=== PATIENT | male | born 1970 | race Caucasian/White ===

== ENCOUNTER 2021-10-03 12:28 | Day surgery (SDC) | payer OTHER, SELFPAY ==
[2021-10-03 12:58] VITALS: BP 135/82; PULSE 51; RESP 18; TEMP 36.9; O2SAT 100
--- NOTE | 2021-10-03 13:02 | P.PNAN_ITS ---
Anes - Initial Pre Proc Eval Procedure: Operation Date: 10/03/21 14:00 Proposed Procedures p Screening Colonoscopy - Ryley Longoria MD Date/Time: 10/03/21 13:02 Surgeon: Ryley Longoria MD Pre Op Diagnosis: neoplasm screening Patient Data Age: 51 Gender: M Height: 1.65 m Weight: 82 kg Allergies Allergy/AdvReac Type Severity Reaction Status Date / Time No Known Allergies Allergy Unknown Verified 10/03/21 12:55 Home Medications Medication Instructions Recorded Confirmed Type amlodipine 10 mg tablet 10 mg PO DAILY #90 tabs 08/23/21 10/03/21 Rx sodium sul 1.479 gram-potas ch See Rx Instructions PO PER PKG DIR 09/15/21 10/03/21 Rx 0.188 gram-magnes sul 0.225 gram #24 tabs tablet (Sutab) Patient hx anesthesia problems: none Family hx anesthesia problems: hx of malignant hyperthermia (cousin) Results Review: All pre-operative results and documents have been reviewed as part of the pre- operative evaluation. [facility] Past Medical History Medical History Degenerative joint disease of knee Effusion of bursa of left knee Essential (primary) hypertension History of COVID-19 12/2020 Left knee pain Prepatellar bursitis Right knee pain Tendinopathy of left shoulder Surgical History Surgical History History of removal of cyst 1989 - below chin History of repair of anterior cruciate ligament of right knee 2000 History of umbilical hernia repair 2015 Family History Family History Mother Family history of malignant neoplasm of brain Sibling Family history of Hodgkin's lymphoma Father Diabetes mellitus Other Hypertension Social History Social History Smoking status: Never smoker Second hand tobacco smoke exposure: No Alcohol intake: unknown Substance use: never Substance use type: does not use Living arrangements: with family Gender identity (if verbalized by the patient): Male Spiritual care concerns: No Anes - Eval Final PreProcedure Day of Procedure 10/03/21 13:02 Patient weight: overweight Heart: regular rate and rhythm Lungs: clear to auscultation Airway: Mallampati scale class II Neurological: alert and oriented Last oral intake: >/= 8 hours ASA classification: II Emergent: no Anesthetic plan: proceed Anesthesia type and monitoring: general GIVS and standard monitoring Results Review: All pre-operative results and documents have been reviewed as part of the pre- operative evaluation. Informed Consent: The patient's anesthetic plan and its attendant risks and benefits were discussed with the patient/family/POA. Questions were solicited and answers provided to the satisfaction of the patient/family/POA.
[2021-10-03] MEDS: LACTATED RINGERS 1,000 ML 150 ML IV CONT (13:06)
--- NOTE | 2021-10-03 13:35 | PM.HPGS ---
History of Present Illness History of Present Illness Consent: Risks, benefits, and alternatives have been discussed and questions answered. Patient agrees to proceed with procedure. Chief complaint: neoplasm screening Narrative: Mike Vallecillo is a 51 year old male here for screening colonoscopy, had one 8 years ago Review of Systems Constitutional: Constitutional: Denies headache(s) and Denies weakness Eyes: Eyes: Denies blurry vision ENT: Reports Normal hearing present, Denies headache(s) and Denies neck pain Cardiovascular: Cardiovascular: Denies chest pain and Denies dyspnea Respiratory: Respiratory: Denies dyspnea Gastrointestinal: Gastrointestinal: Reports no additional gastrointestinal complaints Genitourinary: Genitourinary: Denies dysuria Musculoskeletal: Musculoskeletal: Denies neck pain Integumentary/Breasts: Skin/Breast: Denies dry skin Neurologic: Reports Normal hearing present, Denies headache(s) and Denies weakness Psychiatric: Psychiatric: Denies anxiety Endocrine: Endocrine: Denies change in body appearance Hematologic/Lymphatic: Hematologic/Lymphatic: Denies easy bleeding Allergic/Immunologic: Allergic/Immunologic: Denies urticaria PMFSH Past Medical History Medical History (Updated 10/03/21 @ 13:36 by Ryley Longoria MD) Colon cancer screening Degenerative joint disease of knee Effusion of bursa of left knee Essential (primary) hypertension History of COVID-19 12/2020 Left knee pain Prepatellar bursitis Right knee pain Tendinopathy of left shoulder Surgical History Surgical History History of removal of cyst 1989 - below chin History of repair of anterior cruciate ligament of right knee 2000 History of umbilical hernia repair 2016 Family History Family History Mother Family history of malignant neoplasm of brain Sibling Family history of Hodgkin's lymphoma Father Diabetes mellitus Other Hypertension Social History Social History Smoking status: Never smoker Second hand tobacco smoke exposure: No Alcohol intake: unknown Substance use: never Substance use type: does not use Living arrangements: with family Gender identity (if verbalized by the patient): Male Spiritual care concerns: No Meds Home Medications and Allergies Home Medications Medication Instructions Recorded Confirmed Type amlodipine 10 mg tablet 10 mg PO DAILY #90 tabs 08/23/21 10/03/21 Rx sodium sul 1.479 gram-potas ch See Rx Instructions PO PER PKG DIR 09/15/21 10/03/21 Rx 0.188 gram-magnes sul 0.225 gram #24 tabs tablet (Sutab) Allergies Allergy/AdvReac Type Severity Reaction Status Date / Time No Known Allergies Allergy Unknown Verified 10/03/21 12:55 Vital Signs Vital Signs - 24 hr 10/03/21 12:58 Temperature 98.4 F Pulse Rate 51 L Respiratory Rate 18 Blood Pressure 135/82 Pulse Oximetry 100 Oxygen Delivery Room Air Exam Const: General: comfortable and no acute distress HENMT: General nose exam: Normal nares present Eyes: General: appearance normal, both eyes and all related structures Neck: Neck: no JVD Resp: Auscultation: clear to auscultation bilaterally Cardio: Rate: regular rate Rhythm: regular rhythm GI: Inspection: non-distended GI Palp: Yes Soft to palpation Skin: General skin exam: normal color Neuro: General: gait normal Speech: normal speech Extrem: General: normal to inspection Psych: Mental Status: mental status grossly normal Assessment and Plan Assessment and plan (1) Colon cancer screening: Code(s): Z12.11 - Encounter for screening for malignant neoplasm of colon Status: Acute Assessment and Plan: colonoscopy
[2021-10-03 13:53] VITALS: BP 138/96; PULSE 67; RESP 18; TEMP 36.3; O2SAT 97
[2021-10-03 14:03] VITALS: BP 137/84; PULSE 63; RESP 18; O2SAT 98
[2021-10-03 14:13] VITALS: BP 135/80; PULSE 66; RESP 20; O2SAT 99
--- NOTE | 2021-10-03 14:42 | WPDANESPN ---
Anes - Prog Note Post-Op Date/Time: 10/03/21 14:42 Cardiovascular status: normal Respiratory status: normal Airway patency: baseline Mental status: baseline Post-Op hydration status: normal Vital Signs: Last Vital Signs Temp 36.3 C L 10/03/21 13:53 Pulse 66 10/03/21 14:13 Resp 20 10/03/21 14:13 BP 135/80 10/03/21 14:13 Pulse Ox 99 10/03/21 14:13 O2 Del Method Room Air 10/03/21 14:13 Pain Score (VAS): 0 I/O: Intake & Output 10/02/21 10/03/21 10/03/21 23:59 07:59 15:59 Intake Total 600 Balance 600 Patient Feedback: Patient satisfied with anesthetic care.
== END 2021-10-03 14:25 | disposition home or self-care (01) ==
PROVIDERS: PCP Family Medicine; Visit Provider Internal Medicine Gastroenterology
PROC: 0DJD8ZZ Inspection of Lower Intestinal Tract, Via Natural or Artificial Opening Endoscopic (ICD-10-PCS; CPT 45378; principal; 2021-10-03 14:00)
DX: K57.30 Diverticulosis of large intestine without perforation or abscess without bleeding (principal); Z12.11 Encounter for screening for malignant neoplasm of colon; K64.8 Other hemorrhoids
CPT/HCPCS: 45378

== ENCOUNTER 2024-09-21 14:30 | Outpatient (RCR) | payer OTHER, SELFPAY ==
--- NOTE | 2024-09-08 11:17 | OTOPEVAL1 ---
Assessment and note entered by Gary Ashford, JULIEN/Henrietta, CHT OT Evaluation Information Assessment Status Evaluation Diagnosis M79.631 Pain in right forearm Subjective Information Patient started noticing bilateral forearm pain for a few years. He noticed it during COVID when he and his started doing a lot more yard work than usual. He reports pain is located on the dorsal proximal forearm. Exacerbated by golf, bowling, bracing himself if he falls when playing soccer, and riding a bike for a prolonged period. He reports night time numbness, waking up in the middle of the night with numbness in the thumb, index, and middle fingers. Numbness in the thumb with bike riding. All numbness is located on the palm side of the hand, none on the dorsal side of the hand. 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 Reported Pain Level Pain Score 2/10 Assessment OT Clinical Summary Patient referred to OT with forearm pain. He presents with bilateral proximal forearm pain consistent with radial tunnel syndrome. He has tenderness with palpation to the radial nerve as well as a positive radial nerve tension test bilaterally. He also describes symptoms of carpal tunnel syndrome with intermittent paresthesia in the median nerve distribution of bilateral hands, particularly nocturnal symptoms. Educated on use of wrist cock up splints to wear at night time as well as nerve glide and tendon glide HEP. Continued follow up indicated for use of modalities, manual therapy, therapeutic exercise, and HEP progression to facilitate reduced bilateral UE pain and improved functional strength and use for ADLs. Plan of Care Interventions Therapeutic Exercise,Manual Therapy,Therapeutic Activities,Hot Pack/Cold Pack,Check Out for Orthotic/Prosthetic,Ultrasound,Paraffin OT Services Indicated Yes Treatment Frequency and 1x/week for 5 visits Duration These treatments will address the objective and functional deficits as defined above. The patient will be advanced safely and appropriately in order for the patient to progress towards his/her prior level of function. Additional exercises will be introduced and as well as a comprehensive home exercise program upon discharge, if needed, ?to ensure carryover of functional gains achieved in the clinic. This treatment plan has been reviewed and agreement upon by the patient.
--- NOTE | 2024-09-08 11:17 | OPREHPOC ---
Outpatient Therapy Plan of Care This is a Multidisciplinary Plan of Care that may contain components documented by all disciplines (PT, OT, and ST.) OT Problem 1 OT Problem #1 Knowledge Deficit OT Goal 1 Goal / Goal Update 1. Patient to be independent with instructed materials. Target Visit 5 OT Problem 2 OT Problem #2 Pain OT Goal 1 Goal / Goal Update 1. Patient to report reduced bilateral forearm pain to 0/10 with ADLs and workouts. Target Visit 5 OT Problem 3 OT Problem #3 Impaired Flexibility OT Goal 1 Goal / Goal Update 1. Patient to be able to complete upper limb tension test for the radial and median nerves without symptoms. Target Visit 5 OT Problem 4 OT Problem #4 Impaired Strength OT Goal 1 Goal / Goal Update 1. Patient to increase functional strength of bilateral wrists to be able to complete gross wrist strengthening with 5 lb. dumbbells without symptoms. 2. Patient to increase bilateral radiographer mammographer strengths by 10 lbs. each. 3. Patient to increase bilateral lateral and palmar pinch strengths by 2 lbs. each. Target Visit 5
--- NOTE | 2024-09-14 15:58 | OPREHPOC ---
Outpatient Therapy Plan of Care This is a Multidisciplinary Plan of Care that may contain components documented by all disciplines (PT, OT, and ST.) OT Problem 1 OT Problem #1 Knowledge Deficit OT Goal 1 Goal / Goal Update 1. Patient to be independent with instructed materials. Target Visit 5 OT Problem 2 OT Problem #2 Pain OT Goal 1 Goal / Goal Update 1. Patient to report reduced bilateral forearm pain to 0/10 with ADLs and workouts. Target Visit 5 OT Problem 3 OT Problem #3 Impaired Flexibility OT Goal 1 Goal / Goal Update 1. Patient to be able to complete upper limb tension test for the radial and median nerves without symptoms. Target Visit 5 OT Problem 4 OT Problem #4 Impaired Strength OT Goal 1 Goal / Goal Update 1. Patient to increase functional strength of bilateral wrists to be able to complete gross wrist strengthening with 5 lb. dumbbells without symptoms. 2. Patient to increase bilateral hat blocker strengths by 10 lbs. each. 3. Patient to increase bilateral lateral and palmar pinch strengths by 2 lbs. each. Target Visit 5
--- NOTE | 2024-10-12 08:43 | OTOPDC ---
Assessment and note entered by Gary Ashford, JULIEN/Henrietta, CHT OT D/C Notification Diagnosis M79.631 Pain in right forearm Subjective Information HPI: Patient started noticing bilateral forearm pain for a few years. He noticed it during COVID when he and his started doing a lot more yard work than usual. He reports pain is located on the dorsal proximal forearm. Exacerbated by golf, bowling, bracing himself if he falls when playing soccer, and riding a bike for a prolonged period. He reports night time numbness, waking up in the middle of the night with numbness in the thumb, index, and middle fingers. Numbness in the thumb with bike riding. All numbness is located on the palm side of the hand, none on the dorsal side of the hand. 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 Assessment OT Clinical Summary Patient referred to OT with forearm pain. He presents with bilateral proximal forearm pain consistent with radial tunnel syndrome. He has tenderness with palpation to the radial nerve as well as a positive radial nerve tension test bilaterally. He also describes symptoms of carpal tunnel syndrome with intermittent paresthesia in the median nerve distribution of bilateral hands, particularly nocturnal symptoms. Patient attended the initial evaluation and 2 follow up sessions focused on bilateral distal UE nerve compression symptoms. He was compliant with HEP for nerve glides and strengthening. He called to cancel the remaining of his appointments due to feeling back to 100%. No formal reassessment completed. D/C OT at this time per patient request.
== END 2024-10-12 10:56 | disposition home or self-care (01) ==
LOC: ANHGOSHOT 14:30
PROVIDERS: PCP Family Medicine; Visit Provider Family Medicine
DX: M79.631 Pain in right forearm (principal)
CPT/HCPCS: 97018; 97110; 97140; 97166

== ENCOUNTER 2024-10-07 10:45 | Outpatient (CLI) | payer OTHER, SELFPAY ==
--- OUTSIDE RECORDS SUMMARY | 2024-10-07 10:58 | XMS_ITS | Clinical Summary ---
Author Organization [facility] Address [address], [facility] [address] [place] [address] Phone Care Team Providers Care Skidder Driver Name Role Phone Unavailable Primary Care Provider Unavailabl e Medications polyethylene glycol (MIRALAX) Powder Mix the entire bottle with 64 oz of a clear liquid. Use as directed by the office for colonoscopy prep. 255 g 7 Active Social History Tobacco Use Types Packs/Day Years Used Date Smoking Tobacco: Never Assessed Sex and Gender Information Value Date Recorded Sex Assigned at Not on file Legal Sex Male 9:12 PM CDT Gender Identity Not on file Sexual Orientation Not on file Plan of Treatment Health Maintenance Due Date Last Done Comments Hepatitis C Virus (HCV) Screening 1971 TdaP Immunization 1971 Hepatitis B Immunization (1 of 3 - 19+ 3-dose series) 1990 Cologuard 2021 Immunochemical Fecal Occult Blood 2021 Pneumococcal Immunization (5 0+ years) (1 of 1 - PCV) 2021 Zoster Immunization (1 of 2) 2021 Colonoscopy 12/20/2021 12/21/2011 Colorectal Cancer Screening 12/20/2021 Influenza Immunization (#1) 2023 SARS-COV-2 Immunization ( - season) 2023 Respiratory Syncytial Virus (RSV) Immunization (Adult) (1 - 1-dose 75+ series) 2046 Meningococcal Immunization (ACWY) Aged Out No longer eligible based on patient's age to complete this topic Pneumococcal Immunization Combined Aged Out No longer eligible based on patient's age to complete this topic Rotavirus Immunization Aged Out No lo nger eligible based on patient's age to complete this topic Procedures Procedure Name Priority Date/Time Associated Diagnosis Comments COLONOSCOPY Routine 12/21/2011 from Last 3 Months or Most Recently Relevant to Health Maintenance Results * COLONOSCOPY (12/21/2011) Evens Padilla DO PROCEDURE/MINOR SURGICAL ORDERA BLES Final Result from Last 3 Months or Most Recently Relevant to Health Maintenance
--- OUTSIDE RECORDS SUMMARY | 2024-10-07 10:58 | XMS_ITS | Encounter Summary ---
Author Organization [facility] Address [address] [place] [id number] Care Team Providers Care Consumer Education Specialist Name Role Phone Keshawn Plaza MD Primary Care Provider Encounter Details Date Type Department Care Team (Late st Contact Info) Description 02/22/2000 Abstract [facility] Conversion Md, Generic Conversion, Social History Tobacco Use Types Packs/Day Years Used Date Smoking Tobacco: Never Assessed Sex and Gender Information Value Date Recorded Sex Assigned at Not on file Legal Sex Male 6:00 PM CDT Gender Identity Not on file Sexual Orientation Not on file documented as of this encounter Plan of Treatment Not on file documented as of this encounter Visit Diagnoses Not on filedocumented in this encounter Care Teams Consumer Education Specialist Relationship Specialty Start Date End Date Keshawn Plaza MD [address] [facility] [address] [place] [address] PCP - General FAMILY PRACTICE 11/07/23 documented as of this encounter
--- OUTSIDE RECORDS SUMMARY | 2024-10-07 10:58 | XMS_ITS | Clinical Summary ---
Author Organization [facility] Address [address] [place] [id number] Care Team Providers Care Nurse First Assist Name Role Phone Keshawn Plaza MD Primary Care Provider Allergies No known active allergies Medications amLODIPine (NORVASC) 10 MG tablet Take 1 tablet (10 mg total) by mouth daily. 10/11/2023 Active Active Problems No known active problems Social History Tobacco Use Types Packs/Day Years Used Date Smoking Tobacco: Never Smokeless Tobacco: Never Tobacco Cessation:Counseling Given: No Sex and Gender Information Value Date Recorded Sex Assigned at Not on file Legal Sex Male 6:00 PM CDT Gender Identity Not on file Sexual Orientation Not on file Last Filed Vital Signs Vital Sign Reading Time Taken Comments Blood Pressure 128/86 11/07/2023 5:03 PM CDT Pulse 77 11/07/2023 5:03 PM CDT Temperature 37.2 C (99 F) 11/07/2023 5:03 PM CDT Respiratory Rate 18 11/07/2023 5:03 PM CDT Oxygen Saturation 98% 11/07/2023 5:03 PM CDT Inhaled Oxygen Concentration - - Weight 81.3 kg (179 lb 3.2 oz) 11/07/2023 4:43 P M CDT Height 165.1 cm (5' 5) 11/07/2023 4:43 PM CDT Body Mass Index 29.82 11/07/2023 4:43 PM CDT Plan of Treatment Health Maintenance Due Date Last Done Comments Colorectal Cancer Screening Colonoscopy (10 Years) 1971 Annual Physical 1974 Hepatitis C 1989 Hepatitis B Vaccines (1 of 3 - 19+ 3-dose series) 1990 Pneumococcal Vaccine: 50+ Years (1 of 1 - PCV) 2021 COVID-19 Vaccine (2023- season) 2023 02/03/2023, 01/04/2022, 08/24/2021, Additional history exists Zoster Vaccines (2 of 2) 12/31/2023 11/05/2023 PHQ-2 (Physician [place]) 04/08/2024 DTaP, Tdap and Td Vaccines (10 - Td or Tdap) 04/26/2024 04/26/2014, 11/23/2005, 08/21/1995, Additional history exists Meningococcal B Vaccine Aged Out No l onger eligible based on patient's age to complete this topic Meningococcal Vaccine Aged Out No mony tiara eligible based on patient's age to complete this topic RSV Immunizations Under 20 Months Aged Out No longer eligible based on patient's age to complete this topic Insurance [id number] Care Teams Nurse First Assist Relationship Specialty Start Date End Date Keshawn Plaza MD [address] [facility] [address] [place] [address] PCP - General FAMILY PRACTICE 11/07/23
--- OUTSIDE RECORDS SUMMARY | 2024-10-07 10:58 | XMS_ITS | Clinical Summary ---
Author Organization [facility] Address [address] [place] [address] Care Team Providers Care Citrus Peeler Name Role Phone Keshawn Plaza MD Primary Care Provider Source Comments [facility],non-owned Affiliates and Associated Physician Practices is amultiple site organization consisting of ambulatory clinics and hospital sitesin [place], [place], [place] and [place]. This disclosure is being madepursuant to the Care Everywhere program and may not contain all information available regarding this patient. Last updated 17.[facility] Allergies No known active allergies Medications * Be aware that medications may not be up to date on this document. Alwaysverify current medications with the patient. No known medications Family History Medical History Relation Name Comments Cancer - Other Mother Brain Hodgkin's lymphoma Sister NON Relation Name Status Comments Mother Sister Social History Tobacco Use Types Packs/Day Years Used Date Smoking Tobacco: Never Smokeless Tobacco: Never Sex and Gender Information Value Date Recorded Sex Assigned at Not on file Legal Sex Male 10:07 AM CDT Gender Identity Not on file Sexual Orientation Not on file Last Filed Vital Signs Vital Sign Reading Time Taken Comments Blood Pressure 126/80 06/27/2018 9:15 AM CDT Pulse 62 06/27/2018 9:15 AM CDT Temperature 36.7 C (98 F) 06/27/2018 9:15 AM CDT Respiratory Rate 16 06/27/2018 9:15 AM CDT Oxygen Saturation 95% 06/27/2018 9:15 AM CDT Inhaled Oxygen Concentration - - Weight 77.1 kg (170 lb) 06/27/2018 9:15 AM CDT Height 165.1 cm (5' 5) 06/27/2018 9:15 AM CDT Body Mass Index 28.29 06/27/2018 9:15 AM CDT Plan of Treatment Health Maintenance Due Date Last Done Comments COLOGUARD (AGES 45-75) - COL ON CA SCREENING 1971 COLON MONITORING 1971 COLONOSCOPY - COLON CA SCREENING 1971 CT COLONOGRAPHY - COLON CA SCREENING 1971 Colorectal Cancer Screening 1971 FIT - COLON CA SCREENING 1971 FLEX SIG - COLON CA SCREENING 1971 LIPID TESTING 1971 HIV SCREENING 1986 HEPATITIS C SCREENING 05/26/1989 DTAP/TDAP/TD VACCINES (1 - Tdap) 1990 HEPATITIS B VACCINE (1 of 3 - 19+ 3-dose series) 1990 SCREENING FOR DIABETES 06/27/2018 PNEUMOCOCCAL VACCINE 50+ (1 of 1 - PCV) 2021 ZOSTER VACCINE (1 of 2) 2021 COVID-19 VACCINE (1 - 2023-2 5 season) 2023 DEPRESSION SCREENING 04/08/2024 INFLUENZA VACCINE (Season Ended) 2024 HIB VACCINE Aged Out No longer eligi ble based on patient's age to complete this topic HPV VACCINE Aged Out No longer eligi ble based on patient's age to complete this topic MENINGOCOCCAL (Group B) VACC INE SHARED DECISION-MAKING Aged Out No longer eligibl e based on patient's age to complete this topic MENINGOCOCCAL GROUPS A/C/Y/W VACCINE Aged Out No longer eligible b ased on patient's age to complete this topic Insurance [facility] Care Teams Citrus Peeler Relationship Specialty Start Date End Date Keshawn Plaza MD [address] [place] [address] PCP - General Family Medicine 06/27/18
--- NOTE | 2024-10-07 11:13 | ECG_ITS ---
Test Date: 2024-10-07 11:24:22 Measurements Intervals [place] Rate: 57 P: 40 NM: 175 QRS: -25 QRSD: 109 T: -25 QT: 398 QTc: 390 Interpretive Statements SINUS BRADYCARDIA BORDERLINE LEFT AXIS DEVIATION [QRS AXIS < -20] VOLTAGE CRITERIA FOR LVH [MEETS CRITERIA IN ONE OF: R(aVL), S(V1), R(V5), R(V5/V6)+S(V1)] MODERATE T-WAVE ABNORMALITY, CONSIDER ANTEROLATERAL ISCHEMIA [-0.1+ mV T WAVE IN V3-V6] ABNORMAL ECG No previous ECG available for comparison Electronically Signed On 10-07-2024 12:54:38 CDT by David Lloyd M.D.
[2024-10-07 11:41] LABS: Hematocrit 45.5 % (42.0-52.0); Hemoglobin 14.0 g/dL (14.0-18.0); Immature Granulocyte Percent A 0.4 % (0-0.5); Lymphocytes Absolute Auto 1.25 K/mm3 (0.9-3.2); Mean Corpuscular HGB Conc 30.8 g/dl (32-36); Mean Corpuscular Hemoglobin 25.7 pg (26-34); Mean Corpuscular Volume 83.5 fl (80-100); Nucleated Red Blood Cells Absolute Auto 0.000 K/mm3 (0.0-0.012); Nucleated Red Blood Cells Perc 0.0 % (0.0-0.2); Platelet Count Result 259 k/mm3 (150-375); Red Blood Count 5.45 M/mm3 (4.6-6.20); White Blood Count 8.0 K/mm3 (4.5-10.0)
== END 2024-10-07 10:46 | disposition home or self-care (01) ==
LOC: ANHSURGERY 10:48
PROVIDERS: PCP Family Medicine; Visit Provider Surgery
DX: K40.90 Unilateral inguinal hernia, without obstruction or gangrene, not specified as recurrent (principal); K42.9 Umbilical hernia without obstruction or gangrene; I10 Essential (primary) hypertension; R94.31 Abnormal electrocardiogram [ECG] [EKG]
CPT/HCPCS: 36415; 85025; 86850; 86900; 86901; 93005

== ENCOUNTER 2024-10-14 00:30 | Day surgery (SDC) | payer OTHER, SELFPAY ==
--- NOTE | 2024-10-06 15:57 | SUR.PREOP ---
Report to the Outpatient Waiting Room, entrance under the green pavilion located off [facility], at time ____1000___ on date ____10/14/24___. Planned Procedure Time: ____1200____.? Time changes happen often and if your time is changed the preop area will call you the afternoon before. - You and your visitor will be asked to self-screen and do not enter if you have any COVID symptoms. Please call surgeon if you need to reschedule. - A mask is optional within the hospital at this time. Patients may have clear liquids (water, carbonated beverages, clear teas, apple juice) until 3 hours prior to surgery with a maximum of 20 ounces. - NO CLEARS LIQUIDS AFTER 0900 - No food from midnight until time of surgery and no smoking, or chewing tobacco (or any form of nicotine). No chewing gum, candy or mints. - Infants may have breast milk until 4 hours before surgery, infant formula 6 hours prior to surgery. - Children will be allowed to drink immediately following surgery.? If applicable, please bring a bottle or sippy cup to assist with drinking. Juice, water, soda, and popsicles are readily available.? For infants on formula, please bring formula the day of surgery.? Pacifiers are allowed. Take only the following medications with a SIP of water on the morning of surgery: AMLODIPINE DO NOT STOP ANY OF YOUR OTHER PRESCRIPTION MEDICATIONS PRIOR TO SURGERY EXCEPT THE FOLLOWING Hold all vitamins and supplements for 3 days per anesthesiologist. Medications to discontinue per physician N/A Date to take last dose Please no make-up, nail new zealander, hairspray, perfume, deodorant, or body powder the day of surgery.? No jewelry (including any body piercings) or valuables the day of surgery, leave them at home.? Please take a shower or bath the night before, or the morning of, surgery with an antibacterial soap.? Wear comfortable, loose fitting clothing.? Children are encouraged to wear pajamas. - Jewelry must be removed prior to entering the operating room.? Rings and piercings that are not removed may be cut off. - The hospital will not accept responsibility for valuables.? - Please leave all valuables, including medications, at home the day of surgery. If you are going home after surgery, a licensed automation driver must drive you home.? - NO public transportation without another adult if you receive anesthesia. - We recommend that an adult stay with you for 24 hours following discharge. - We also recommend that you do not drive, make important decision, drink alcoholic beverages, or take any drugs that were not prescribed by your health care provider for at least 24 hours after your discharge time. For Pediatric surgeries, we recommend two adults accompany the child home. Follow any additional instructions given to you from your surgeon. Telephone instructions given to MERON LAGUNAS and asked if any additional questions and then verbalized understanding. Patient advised to call surgeon office or pre surgery nurse liaison [phone] if any additional questions.
[2024-10-06 16:17] VITALS: BMI 29.1
[2024-10-14] VITALS (10 sets, daily range): BP systolic 113–135; BP diastolic 63–87; PULSE 52–68; RESP 18–20; TEMP 36.3–36.8; O2SAT 95–99; BMI 29.4
--- OUTSIDE RECORDS SUMMARY | 2024-10-14 00:36 | XMS_ITS | Encounter Summary ---
Author Organization [facility] Address [address] [place] [id number] Care Team Providers Care Manhole Stripper Name Role Phone Keshawn Plaza MD Primary Care Provider Encounter Details Date Type Department Care Team (Late st Contact Info) Description 02/22/2000 Abstract [facility] Conversion Md, Generic Conversion, Social History Tobacco [...] on filedocumented in this encounter Care Teams Manhole Stripper Relationship Specialty Start Date End Date Keshawn Plaza MD [address] [facility] [address] [place] [address] PCP - General FAMILY PRACTICE 11/07/23 documented as of this encounter
--- OUTSIDE RECORDS SUMMARY | 2024-10-14 00:36 | XMS_ITS | Clinical Summary ---
Author Organization [facility] Address [address] [place] [address] Care Team Providers Care Forest Pathology Teacher Name Role Phone Keshawn Plaza MD Primary Care Provider Source Comments [facility],non-owned Affiliates and Associated Physician Practices is amultiple site organization consisting of ambulatory clinics and hospital sitesin [place], [place], [place] and [place]. This disclosure is being madepursuant to the Care Everywhere program and may not contain all information available regarding this patient. Last updated 17.[facility] Allergies No known active allergies Medications * [...] season) 2023 DEPRESSION SCREENING 04/08/2024 INFLUENZA VACCINE (#1) 2024 HIB VACCINE Aged Out No longer [...] patient's age to complete this topic Insurance [facility] Care Teams Forest Pathology Teacher Relationship Specialty Start Date End Date Keshawn Plaza MD [address] [place] [address] PCP - General Family Medicine 06/27/18
--- OUTSIDE RECORDS SUMMARY | 2024-10-14 00:36 | XMS_ITS | Clinical Summary ---
Author Organization [facility] Address [address] [facility] [address] [place] [address] Phone Care Team Providers Care Curtain Stretcher Name Role Phone Unavailable Primary Care Provider [...]
--- OUTSIDE RECORDS SUMMARY | 2024-10-14 00:36 | XMS_ITS | Clinical Summary ---
Author Organization [facility] Address [address] [place] [id number] Care Team Providers Care Asian Studies Professor Name Role Phone Keshawn Plaza MD Primary [...] (2 of 2) 12/31/2023 11/05/2023 PHQ-2 (Physician [facility]) 04/08/2024 DTaP, Tdap and Td Vaccines (10 [...] patient's age to complete this topic Insurance [id number] Care Teams Asian Studies Professor Relationship Specialty Start Date End Date Keshawn Plaza MD [address] [facility] [address] [place] [address] PCP - General FAMILY PRACTICE 11/07/23
--- NOTE | 2024-10-14 09:11 | P.SS_ITS ---
Same Day Admit/Disch: HPI History of Present Illness Chief complaint: Lt Ing Hernia, Recurrent Umb Hernia Narrative: Mike Vallecillo is a 54 year old male who was noted by his primary care physician to have a left inguinal hernia. He was seen in my office and has a reducible left inguinal hernia that is minimally symptomatic. He also has an umbilical hernia with a 5 mm defect. He has a history of a previous umbilical hernia repair. He is taken to surgery at this time for robotic laparoscopic repair of his left inguinal hernia as well as open umbilical recurrent hernia repair. [facility] Past Medical History Medical History GERD without esophagitis Left knee DJD Right knee DJD Left lateral epicondylitis (~06/2022) Infrapatellar bursitis of left knee (~06/2022) Iliotibial band syndrome, right leg (~02/2022) Degenerative joint disease of knee Prepatellar bursitis Effusion of bursa of left knee (~08/2021) Tendinopathy of left shoulder Essential (primary) hypertension History of COVID-19 12/2020 Surgical History Surgical History History of umbilical hernia repair 2016 History of removal of cyst 1989 - below chin History of repair of anterior cruciate ligament of right knee 2000 Family History Family History Mother Family history of malignant neoplasm of brain Sibling Family history of Hodgkin's lymphoma Father Diabetes mellitus Other Hypertension Social History Social History Smoking status: Never smoker Second hand tobacco smoke exposure: No Alcohol intake: current Alcohol use details: Socially Substance use: never Substance use type: does not use Do You Feel Safe in your Home?: Yes Lack of Transportation: No Lack of Food: Never True Current Housing: I Have Housing Concerned About Future Housing: No Difficulty Paying Gas/Electric Bills: No Difficulty Paying for Meds: No Currently Unemployed: No Education: Master's Degree or Higher Difficulty w/ Childcare or Family Care: No Living arrangements: with family Occupation/Education: occupation Gender identity (if verbalized by the patient): Male Sexual Orientation (if Verbalized by the Patient): Straight or Heterosexual Spiritual care concerns: No Agree to blood products: Yes Same Day Admit/Disch: Med Pre-admit Medications Home Medications ?Medication ?Instructions ?Recorded ?Confirmed ?Type amlodipine 10 mg tablet 10 mg PO DAILY #90 tabs 10/11/23 10/14/24 Rx cholecalciferol (vitamin D3) 50 50 mcg PO DAILY #90 tabs 08/12/24 10/14/24 Rx mcg (2,000 unit) tablet omeprazole 40 mg capsule,delayed 40 mg PO DAILY #90 caps 08/12/24 10/14/24 Rx release ketorolac 10 mg tablet 10 mg PO Q6H 4 days #16 tabs 10/14/24 Rx oxycodone-acetaminophen 5 mg-325 1 - 2 tablet PO Q6H PRN pain #15 10/14/24 Rx mg tablet (Percocet) tabs Review of Systems Review of Systems All systems reviewed & are unremarkable except as noted in HPI and below (HPI) Exam Const: General: comfortable, no acute distress, alert and awake HENMT: Head: normocephalic and atraumatic Mouth: Yes Normal oral and palatal mucosa present Eyes: Conjunctivae: conjunctivae normal Pupils: Equal, round and reactive pupils present EOM: EOMs intact bilaterally Neck: Neck: normal visual inspection, no lymphadenopathy and nontender Resp: Effort & Inspection: normal respiratory effort Auscultation: clear to auscultation bilaterally Cardio: Rate: regular rate Rhythm: regular rhythm Heart sounds: no gallops, no murmurs and no rubs GI: Inspection: non-distended GI Palp: Yes Soft to palpation, No Tenderness to palpation present (GI), No Hepatomegaly present, No Splenomegaly present and Yes Hernia present umbilical < 3 cm (0.5 cm defect) : Male General Exam: Yes hernia (Reducible left inguinal hernia, pulses with cough) Penis: Yes normal penis Scrotum: scrotum normal Testes: Testes normal Skin: Lesions: no lesions Rashes: no rashes Neuro: General: no focal motor deficits and CN's II-XI intact bilaterally Cranial nerves: Yes Equal, round and reactive pupils present, Yes Bilaterally intact EOM present, Yes facial symmetry and Yes Midline tongue present Speech: normal speech Motor exam (neuro): 5/5 motor strength present throughout and Motor abnormalities not present Extrem: General: no clubbing, cyanosis or edema and edema Psych: Affect: normal affect Thought process: Normal thought process present Insight: Good insight present (Psych) DS: Summary Time Spent with Patient Time attestation: Total time spent providing and/or coordinating discharge services: DS: Admitting Diagnosis Discharge Date 10/14/2024 Admitting Diagnosis * Reducible left inguinal hernia-plan to proceed with robotic laparoscopic repair with mesh under general anesthesia. The procedure, risks, benefits, alternatives have been discussed. The usual length of the surgery as well as the length of time of recovery have been discussed. All questions were answered. He understands and agrees to go ahead. * Asymptomatic recurrent umbilical hernia with 0.5 cm defect-plan to repair this with open surgery at the same procedure. This has been discussed with the patient thoroughly as well. He wishes to go ahead with this recurrent hernia repair. * Essential hypertension * Gastroesophageal reflux disease DS: Discharge Diagnosis Discharge Diagnosis (1) Left inguinal hernia: Code(s): K40.90 - Unilateral inguinal hernia, without obstruction or gangrene, not specified as recurrent Status: Chronic Assessment and Plan: robotic laparoscopic repair with mesh 10/14/[address] Noriega (2) Recurrent umbilical hernia: Code(s): K42.9 - Umbilical hernia without obstruction or gangrene Status: Chronic Assessment and Plan: Open repair with mesh 10/14/[address] Noriega Discharge Plan Discharge Patient Disposition: Home Discharge Instructions: 1. May shower the day after surgery over incisions. 2. Call office for: -Wound increasingly painful or bleeding -Vomiting -Fever of greater than 101 degrees 3. For scrotal support at all times except when sleeping or showering for 1 week. 4. If no bowel movement for three days, take 1 oz. (30 ml) Milk of Magnesia, if no results, take Fleets enema. 5. No heavy lifting > 15-20 pounds for 2 weeks. 6. No driving for 3 days or while taking narcotic pain medications. 7. Up walking 10-30 minutes three times per day. 8. Resume previous home medications. 9. Follow-up 10-14 days in office for wound check or as previously scheduled. 10. Oral pain medications prescription to be sent home with patient. 11. NUTRITION: Start out by drinking fluids and increase your diet as tolerated. If you experience nausea, try dry toast, crackers, and 7-UP. If nausea or vomiting persists, contact your surgeon?s office. Patient Language: Uzbek Stand Alone Forms: General Discharge Instructions Follow-up/Referrals: Ernie Noriega MD [Physician] - 2 Weeks Discharge Medications: New ketorolac 10 mg tablet 10 mg PO Q6H 4 Days Qty: 16 0RF oxycodone-acetaminophen [Percocet] 5-325 mg tablet 1 - 2 tablet PO Q6H PRN (Reason: pain) Qty: 15 0RF Continued cholecalciferol (vitamin D3) 50 mcg (2,000 unit) tablet 50 mcg PO DAILY Qty: 90 2RF omeprazole 40 mg capsule,delayed release(DR/EC) 40 mg PO DAILY Qty: 90 0RF amlodipine 10 mg tablet 10 mg PO DAILY Qty: 90 3RF
--- NOTE | 2024-10-14 10:47 | P.PNAN_ITS ---
Anes - Initial Pre Proc Eval Procedure: Operation Date: 10/14/24 12:00 Proposed Procedures p Robotic Repair Left Inguinal Hernia with Mesh - Ernie Noriega MD s Repair Open Umbilical Recurrent Hernia - Ernie Noriega MD Date/Time: 10/14/24 10:47 Surgeon: Ernie Noriega MD Pre Op Diagnosis: Lt Ing Hernia, Recurrent Umb Hernia Patient Data Age: 54 Gender: M Height: 1.65 m Weight: 80.2 kg Last Vital Signs Temp 36.3 C L 10/14/24 10:10 Pulse 52 L 10/14/24 10:10 Resp 18 10/14/24 10:10 BP 115/75 10/14/24 10:10 Pulse Ox 99 10/14/24 10:10 O2 Del Method Room Air 10/14/24 10:10 Allergies Allergy/AdvReac Type Severity Reaction Status Date / Time No Known Allergies Allergy Unknown Verified 10/14/24 10:21 Home Medications ?Medication ?Instructions ?Recorded ?Confirmed ?Type amlodipine 10 mg tablet 10 mg PO DAILY #90 tabs 10/11/23 10/14/24 Rx cholecalciferol (vitamin D3) 50 50 mcg PO DAILY #90 tabs 08/12/24 10/14/24 Rx mcg (2,000 unit) tablet omeprazole 40 mg capsule,delayed 40 mg PO DAILY #90 caps 08/12/24 10/14/24 Rx release Patient hx anesthesia problems: none Family hx anesthesia problems: none Results Review: All pre-operative results and documents have been reviewed as part of the pre- operative evaluation. [facility] Past Medical History Medical History GERD without esophagitis Left knee DJD Right knee DJD Left lateral epicondylitis (~06/2022) Infrapatellar bursitis of left knee (~06/2022) Iliotibial band syndrome, right leg (~02/2022) Degenerative joint disease of knee Prepatellar bursitis Effusion of bursa of left knee (~08/2021) Tendinopathy of left shoulder Essential (primary) hypertension History of COVID-19 12/2020 Surgical History Surgical History History of umbilical hernia repair 2016 History of removal of cyst 1989 - below chin History of repair of anterior cruciate ligament of right knee 2000 Family History Family History Mother Family history of malignant neoplasm of brain Sibling Family history of Hodgkin's lymphoma Father Diabetes mellitus Other Hypertension Social History Social History Smoking status: Never smoker Second hand tobacco smoke exposure: No Alcohol intake: current Alcohol use details: Socially Substance use: never Substance use type: does not use Do You Feel Safe in your Home?: Yes Lack of Transportation: No Lack of Food: Never True Current Housing: I Have Housing Concerned About Future Housing: No Difficulty Paying Gas/Electric Bills: No Difficulty Paying for Meds: No Currently Unemployed: No Education: Master's Degree or Higher Difficulty w/ Childcare or Family Care: No Living arrangements: with family Occupation/Education: occupation Gender identity (if verbalized by the patient): Male Sexual Orientation (if Verbalized by the Patient): Straight or Heterosexual Spiritual care concerns: No Agree to blood products: Yes Anes - Eval Final PreProcedure Day of Procedure 10/14/24 10:47 Patient weight: overweight Heart: regular rate and rhythm Lungs: clear to auscultation Airway: Mallampati scale class II Neurological: alert and oriented Last oral intake: >/= 8 hours ASA classification: II Emergent: no Anesthetic plan: proceed Anesthesia type and monitoring: general ETT and standard monitoring Results Review: All pre-operative results and documents have been reviewed as part of the pre- operative evaluation. Informed Consent: The patient's anesthetic plan and its attendant risks including cardiac issues and benefits were discussed with the patient/family/POA. Questions were solicited and answers provided to the satisfaction of the patient and . EKG abnormalities were discussed at length as well as his excellent exercise tolerance and Heating Element Repairer clearance with no other testing recommended.
[2024-10-14] MEDS: LACTATED RINGERS 1,000 ML 30 ML IV CONT ×2 (11:00→18:01)
[2024-10-14] MEDS: KETOROLAC 15 MG/ML VIAL (*BKC) IV PUSH (11:10)
[2024-10-14] MEDS: ACETAMINOPHEN 500 MG TABLET 1000 MG PO (11:10)
--- NOTE | 2024-10-14 13:12 | WPDANESEPPF ---
Anes - Initial Pre Proc Eval Procedure: Operation Date: 10/14/24 12:00 Proposed Procedures p Robotic Repair Left Inguinal Hernia with Mesh - Ernie Noriega MD s Repair Open Umbilical Recurrent Hernia - Ernie Noriega MD Date/Time: 10/14/24 13:12 Surgeon: Ernie Noriega MD Pre Op Diagnosis: Lt Ing Hernia, Recurrent Umb Hernia Patient Data Age: 54 Gender: M Height: 1.65 m Weight: 80.2 kg Last Vital Signs Temp 97.3 F L 10/14/24 10:10 Pulse 52 L 10/14/24 10:10 Resp 18 10/14/24 10:10 BP 115/75 10/14/24 10:10 Pulse Ox 99 10/14/24 10:10 O2 Del Method Room Air 10/14/24 10:10 Allergies Allergy/AdvReac Type Severity Reaction Status Date / Time No Known Allergies Allergy Unknown Verified 10/14/24 10:21 Home Medications ?Medication ?Instructions ?Recorded ?Confirmed ?Type amlodipine 10 mg tablet 10 mg PO DAILY #90 tabs 10/11/23 10/14/24 Rx cholecalciferol (vitamin D3) 50 50 mcg PO DAILY #90 tabs 08/12/24 10/14/24 Rx mcg (2,000 unit) tablet omeprazole 40 mg capsule,delayed 40 mg PO DAILY #90 caps 08/12/24 10/14/24 Rx release Patient hx anesthesia problems: none Family hx anesthesia problems: none Results Review: All pre-operative results and documents have been reviewed as part of the pre-operative evaluation. [facility] Past Medical History Medical History GERD without esophagitis Left knee DJD Right knee DJD Left lateral epicondylitis (~06/2022) Infrapatellar bursitis of left knee (~06/2022) Iliotibial band syndrome, right leg (~02/2022) Degenerative joint disease of knee Prepatellar bursitis Effusion of bursa of left knee (~08/2021) Tendinopathy of left shoulder Essential (primary) hypertension History of COVID-19 12/2020 Surgical History Surgical History History of umbilical hernia repair 2016 History of removal of cyst 1989 - below chin History of repair of anterior cruciate ligament of right knee 2000 Family History Family History Mother Family history of malignant neoplasm of brain Sibling Family history of Hodgkin's lymphoma Father Diabetes mellitus Other Hypertension Social History Social History Smoking status: Never smoker Second hand tobacco smoke exposure: No Alcohol intake: current Alcohol use details: Socially Substance use: never Substance use type: does not use Do You Feel Safe in your Home?: Yes Lack of Transportation: No Lack of Food: Never True Current Housing: I Have Housing Concerned About Future Housing: No Difficulty Paying Gas/Electric Bills: No Difficulty Paying for Meds: No Currently Unemployed: No Education: Master's Degree or Higher Difficulty w/ Childcare or Family Care: No Living arrangements: with family Occupation/Education: occupation Gender identity (if verbalized by the patient): Male Sexual Orientation (if Verbalized by the Patient): Straight or Heterosexual Spiritual care concerns: No Agree to blood products: Yes Anes - Eval Final PreProcedure Day of Procedure 10/14/24 13:12 Patient weight: normal and overweight Lungs: normal air movement Airway: Mallampati scale class II Neurological: alert and oriented Last oral intake: >/= 8 hours Emergent: no Anesthetic plan: proceed Anesthesia type and monitoring: general ETT and standard monitoring Results Review: All pre-operative results and documents have been reviewed as part of the pre-operative evaluation. HTN. Pt had abnormal EKG, consulted w information management manager who has cleared based on his excellent functional status, playing soccer for 2 hours in heat/biking, no cp or sob. Of note, pt states that his cousin had an event during sx at 12 yo and of the event. Suspected MH, pt reports the immediate family members were tested and were all negative. Informed Consent: The patient's anesthetic plan and its attendant risks and benefits were discussed with the patient/family/POA. Questions were solicited and answers provided to the satisfaction of the patient/family/POA.
--- NOTE | 2024-10-14 14:04 | WPDHPUPDATE1 ---
History and Physical Update Update Date/Time: 10/14/24 14:04 History and Physical has been reviewed, including an updated exam of the patient. There are NO changes in the patient's condition. Risks, benefits, and alternatives have been discussed and questions answered. Patient agrees to proceed with procedure.
[2024-10-14] MEDS: ceFAZolin 2 GM in SODIUM CHLORIDE 0.9% IV 50 ML 100 ML IVPB (14:34)
--- NOTE | 2024-10-14 15:12 | S_PTH ---
PATIENT: Mike Vallecillo LOC: [facility] U#:[id number] AGE/SX: 54/M ROOM: RE10/14/[address]: Ernie Noriega MD : 1970 BED: DIS: 10/14/2024 SPEC #: [id number] RECD: 10/15/24 08:16 STATUS: OLGA REQ #: [id number] TIMOTHY: 10/14/24 15:[address]: Ernie Noriega DEPT: [facility] Surgical RECD BY: Laila Munoz ENTERED: 10/15/24 08:17 SP TYPE: Surgical OTHR DR: Keshawn Plaza MD Tissues: A - Soft Tissue Procedures: Hematoxylin and Eosin Stain Gross and Microscopic Level 3
--- NOTE | 2024-10-14 18:14 | W.PM.PROC2 ---
Procedure Note - Detailed Date of Procedure 10/14/24 Pre-op Diagnosis Lt Ing Hernia, Recurrent Umb Hernia Post-op Diagnosis Same Procedure Performed robotic laparoscopic repair left inguinal hernia with mesh, open repair 3 cm defect recurrent umbilical hernia with mesh Surgeon Ernie Noriega MD [employer] Caty GARCIA, Ab GARCIA Anesthesia General and Local Indications patient has been troubled with a left groin bulge that was diagnosed as a left inguinal hernia by his primary care physician. He saw me in the office and was found to have a reducible left inguinal hernia as well as a recurrent umbilical hernia. The umbilical hernia was suspected to be a 0.5 cm defect by office examination. Findings Patient had a direct left inguinal hernia. The recurrent umbilical hernia, however, was quite a bit larger than expected based on his examination. The defect itself was 3 cm in craniocaudad dimension and 2 cm in transverse measure. [address] hernia mesh was used for the recurrent umbilical hernia due to the fact it was recurrent and was larger than expected. Description of Procedure Patient was taken to surgery and induced into general anesthesia. The abdomen was prepped and draped. We turned our attention 1st to the umbilical hernia. In ellipse was drawn around the previous scar which was on the upper margin of the umbilicus. A skin mole was bordering right on the scar. The ellipse was excised taking the skin mole with it. The umbilical scar was sent to pathology with the skin mole. We then dissected down to the hernia sac. We then dissected to the fascia and dissected around the hernia sac at the fascial level. I then opened the hernia sac and divided it from the umbilical skin. At this point, however, it was evident that there was more hernia defect cephalad to the umbilicus. There were several Ethibond sutures in the wound. All of these were removed. There were 2 additional defects with thin fascial bridges between them and I opened and reduced these hernias dividing the fascial bridges. I then undermined the subcutaneous just above the fascia circumferentially around the hernia defect. I measured the defect and it was 3 cm long and 2 cm wide. I removed the residual hernia sac from the umbilical skin. I chose an [address] mesh that was circular. It was placed in the wound. The defect was closed longitudinally. I placed transfascial sutures of 0 Ethibond on the right and left side of the hernia straps. These were placed in such a way that, once they were tied, they would advance the edges of the hernia defect towards 1 another. I also placed transfascial suture on the cephalad and caudad ends of the defect. I then cut the straps. Two additional [id number] mattress sutures of 0 Ethibond were used to close the defect and secure it to the abdominal wall. All looked good. I then sutured the umbilical skin to the fascia using 3-0 Vicryl. I used some 3-0 Vicryl to close some space of subcutaneous tissue. The skin was then approximated with subcuticular 4-0 Vicryl suture. Finally the skin was closed with running 4-0 Monocryl skin suture. The wound was quarantined with a laparotomy sponge. I then marked on the skin the 3 port sites we would be using for the robotic left inguinal hernia repair. The initial port was in the left subcostal position. The ports were placed in the usual fashion. Once in position, the patient was placed in steep Trendelenburg. The robotic arms were brought into the field. The camera was docked and targeted. The operating arms were then docked and positioned. The surgeon went to the robotic console. The left inguinal hernia appeared to be a direct hernia. There was no right inguinal hernia. I created a peritoneal flap anterior to the inguinal canal structures. Flap was developed broadly from anterior to posterior. Medially we dissected just inside the rectus abdominis down to Branden's ligament. Branden's ligament was exposed as was the pubis. The dissection continued past the midline spine to the patient's right side few cm ears and exposed medial aspect of the right rectus muscle. I then continued the dissection and dissected the peritoneum from the cord structures. I inspected the indirect space and saw no lipoma or hernia. I then dissected chronically incarcerated fatty tissue in the direct hernia defect. The direct hernia was pretty large. It was completely reduced. I continued dissection of the peritoneum until there was adequate space for mesh placement posteriorly. On the more lateral aspect of Branden's ligament, I dissected over to the yarn bleaching machine operator plug. I then had to undermine some additional peritoneum laterally, anteriorly, and medially for the mesh to fit adequately. An extra-large 17 x 12 cm left mid 3DMax mesh was then introduced into the abdominal cavity. It was placed in the inguinal canal area. As I was starting to suture the mesh, I notice that there was fresh bleeding from the posterior aspect of Branden's ligament. I removed the mesh and found the bleeding source. It was cauterized and the bleeding was controlled. This was not very much blood as total blood loss for the surgery was only 10 cc. I did suction this blood away as it was difficult to see the anatomy with the it in the retropubic area. I then repositioned the mesh appropriately. I sutured the mesh to Branden's ligament with 3-0 Vicryl. Two additional 3-0 Vicryl sutures were placed anteriorly, 1 medially and 1 laterally. All looked good. I then closed the peritoneal flap with running 3 0 V lock suture. I then turned my attention to the recurrent ventral hernia mesh. The left side of the mesh was not flush up against the anterior abdominal wall. I used another 3-0 V lock suture and sutured the left edge of the mesh to the anterior abdominal wall in running fashion. All residual suture and needles were then removed. We then removed our instruments and undocked the robot. We evacuated CO2. The trocar incision sites were closed at the skin level with running 4-0 Monocryl skin suture. All the wounds were dressed with Exofin surgical adhesive. A scrotal support was placed. The patient was awakened and taken to recovery in good condition. Sponge and needle counts were correct x2. Implants [address] light hernia patch, extra-large, 17 x 12 cm, left mid 3D max mesh Estimated Blood Loss -10 Drains No Packing No Pathology Yes ( umbilical scar with mole or skin lesion) Complications None Condition Stable Disposition PACU [facility] Billing Surgery - Charge Forward: Surgery Billing (robotic laparoscopic repair left inguinal hernia with mesh, open repair 3 cm defect recurrent umbilical hernia with mesh)
[2024-10-14] MEDS: oxyCODONE HCL (*CRX) 5 MG TAB IR PO (19:30)
[2024-10-14] MEDS: ONDANSETRON HCL ODT 4 MG TABLET PO (20:30)
== END 2024-10-14 20:34 | disposition home or self-care (01) ==
PROVIDERS: PCP Family Medicine; Visit Provider Surgery
PROC: 8E0Y4CZ Robotic Assisted Procedure of Lower Extremity, Percutaneous Endoscopic Approach (ICD-10-PCS; CPT 49650; principal; 2024-10-14 12:00)
PROC: (CPT 49650; 2024-10-14 12:00)
DX: K40.90 Unilateral inguinal hernia, without obstruction or gangrene, not specified as recurrent (principal); K42.9 Umbilical hernia without obstruction or gangrene; L90.5 Scar conditions and fibrosis of skin; G89.18 Other acute postprocedural pain; I10 Essential (primary) hypertension; K21.9 Gastro-esophageal reflux disease without esophagitis; M17.0 Bilateral primary osteoarthritis of knee; M76.31 Iliotibial band syndrome, right leg; Z79.891 Long term (current) use of opiate analgesic; Z98.890 Other specified postprocedural states; Z80.8 Family history of malignant neoplasm of other organs or systems; Z80.7 Family history of other malignant neoplasms of lymphoid, hematopoietic and related tissues
CPT/HCPCS: 49650; 49615; S2900; 88304; J0690; A9270; C1781; J0330; J1100; J1171; J1885; J2003; J2250; J2405; J2704; J3010; J7120